=== PATIENT | female | born 1955 | race Caucasian/White ===

== ENCOUNTER 2017-08-10 00:36 | Day surgery (SDC) | payer OTHER ==
[2017-08-10] VITALS (9 sets, daily range): BP systolic 109–146; BP diastolic 67–97
[~2017-08-10] VITALS: Ht 170.2 cm; Wt 109.8 kg
[~2017-08-10 00:36] MED LIST: ARMTHY90PT PO; ASCO-201 PO; ATR10 PO; BUPR-123 PO; BUPR-136 PO; CA C1TAB85 PO; CALC-780 PO; CALC500T6 PO; CHOL10005 PO; EZET10TA41 PO; GARL500C11 PO; GOLYTE PO; IBAN150T6 PO; LEVO75TA68 PO; OMEG-36 PO; P EP PO; RIBO50TA4 PO; THYR60TA25 PO; UBID100C33 PO; VITA-192 PO; [UNRECOGNIZED DRUG - CODE] PO; [UNRECOGNIZED DRUG - CODE] PO
[2017-08-10] MEDS ORDERED: LIDOCAINE/SOD BICARB 8.4% SYR ID ONE (06:30)
[2017-08-10] MEDS ORDERED: NORMOSOL R SOLN(*) 1000 ML BAG 1,000 ML IV PRN (06:30)
[2017-08-10] MEDS ORDERED: PROPOFOL EMUL(*) 10MG/ML 20 ML 60 ML ONE (07:01)
[2017-08-10] MEDS ORDERED: LIDOCAINE MPF 1% 5 ML VIAL ONE (07:01)
--- NOTE | 2017-08-10 07:57 | Short(Outpt) Discharge Summary ---
Discharge Summary Reason for Hosp/Final Diag: (1) Colon cancer screening Status: Chronic Hospital Course & Plan: Colonoscopy with polypectomy x1 completed without problems. Departure Discharge to: Home, Self Care Discharge Instructions Home Meds Active Scripts Peg/Electrolytes (GOLYTELY SOLUTION) 4,000 Ml Soln, 1 GAL PO ONCE, #1 GAL 0 Refills Prov:ALEJANDRO LUCAS MD 06/07/17 Reported Medications Ezetimibe (ZETIA) 10 Mg Tablet, 10 MG PO QDAY, TAB 07/28/17 Thyroid,Pork (ARMOUR THYROID) 60 Mg Tablet, 60 MG PO DAILY 07/28/17 Cholecalciferol (Vitamin D3) (VITAMIN D3) 1,000 Unit Tablet, 5000 UNIT PO DAILY , TAB 07/28/17 Riboflavin (VITAMIN B-2) 50 Mg Tablet, 50 MG PO QDAY 06/14/17 Calcium Carbonate (CALCIUM) 500 Mg Tablet, 500 MG PO QDAY 06/14/17 Bupropion Hcl (BUPROPION HCL SR) 150 Mg Tablet.er, 150 MG PO QDAY 06/14/17 [place]-3 Fatty Acids/Fish Oil ([place] 3 Fish Oil Softgel) 1 Each Capsule.dr, 1 EACH PO DAILY, 0 Refills 02/04/09 Diet: Regular Activity: As Tolerated Special Instructions: Your colonoscopy was completed without any problems and your prep was excellent (Good Job!!). I removed a single tiny polyp from your colon and it was sent to pathology. My office will call you in the next week to let you know what the polyp is and when your next colonoscopy should be (5 or 10 years depending on what the polyp is). ALEJANDRO LUCAS MD Aug 10, 2017 07:57
== END 2017-08-10 10:05 | disposition home or self-care (01) ==
LOC: OR 00:36
PROVIDERS: ATTEND Surgery
DX: Z12.11 Encounter for screening for malignant neoplasm of colon (principal); K63.5 Polyp of colon
CPT/HCPCS: 00811; 45385; 88305; J2001; J2704

== ENCOUNTER → 2018-05-15 | Outpatient (CLI) | payer OTHER ==
--- NOTE | 2018-05-15 09:55 | RADIOLOGY IMAGING REPORT ---
FACILITY: [facility] PATIENT NAME: Rosy Carson : 1955 MR: [id number] V: [id number] EXAM DATE: ORDERING PHYSICIAN: LIANET PARK TECHNOLOGIST: Location: [facility] [place] Patient: Rosy Carson : 1955 Visit/Account:[id number] Date of Sevice: 05/15/2018 DEXA Scan Clinical history: Menopause. Comparison: DEXA scan from 07/22/2014. LUMBAR SPINE: The bone mineral density (BMD) measured from L1-L4 correlates with a Z-score of 0 and a T-score of -0 .2 which is Normal as defined by the World Health Organization. The corresponding risk of fracture i n the lumbar spine is Not increased compared with a young adult reference population. This value has increased by 10.7 % since the prior study. More than 5% change is considered significant. HIP: Bone mineral density (BMD) measured in the LEFT total hip region correlates with a Z-score 0.3 and a T-score of 0.1 which is normal as defined by the World Health Organization. The corresponding risk of fracture in the hip is Not i ncreased compared to a young adult reference population. This value has increased by one % since the prior study. More than 5% change is considered significant. T score left femoral neck -0.8 Bone mineral density (BMD) measured in the Femoral Neck region measures 0.929 g/cm?. IMPRESSION: 1. Lumbar spine: Normal. There has been 10.7% increase in the bone mineral density since the previo us exam. 2. Left Total Hip: Normal. There has been 1% increase in the bone mineral density since the previou s exam. 3. Femoral Neck: Bone Mineral Density is 0.929 g/cm? The next DEXA scan of this patient should include the following sites: L1-L4 and the left hip. FRAX? WHO Fracture Risk Assessment Tool link: <http://www.shef.ac.uk/FRAX/tool.jsp?locationValue=9> PLEASE NOTE: 1) The World Health Organization defines low BMD as follows: T-score Normal > -1 Osteopenia < -1 and > -2.5 Osteoporosis < -2.5 without fractures Established osteoporosis < -2.5 with fractures 2) In general, you may wish to consider: Diagnosis Treatment Follow-up DEXA Normal BMD Prevention 2-3 years Osteopenia Prevention/therapy 1-2 years Osteoporosis Therapy Yearly 3) Fracture risk estimated from the T-score is more accurate for vertebral fractures (often spontane ous) than for hip fractures. Report Dictated By: Misty Espinoza MD at 05/15/2018 9:49 AM Report E-Signed By: Misty Espinoza MD at 05/15/2018 9:51 AM HIGINION:AMICIVN
== END ==
LOC: RAD 00:29
PROVIDERS: ATTEND Nurse Practitioner Family
DX: Z78.0 Asymptomatic menopausal state (principal)
CPT/HCPCS: 77080